=== PATIENT | male | born 1980 | race Caucasian/White ===

== ENCOUNTER 2024-02-07 21:53 | Emergency (ER) | payer OTHER ==
[2024-02-07] MEDS ORDERED: Lidocaine 1% 5 ML VIAL INJECT ONE (22:46)
[2024-02-07] MEDS ORDERED: Silver Nitrate Applicator Each TOP ONE (23:03)
[2024-02-07] MEDS ORDERED: Bacitracin Oint 1 GM U/D Packet TOP ONE (23:04)
== END 2024-02-08 00:34 | disposition home or self-care (01) ==
LOC: JP.ED 21:53
DX: S61.001A Unspecified open wound of right thumb without damage to nail, initial encounter (principal); W26.8XXA Contact with other sharp object(s), not elsewhere classified, initial encounter; Z91.040 Latex allergy status
CPT/HCPCS: 12001; 73140-26-F5; 73140-F5; 99283